=== PATIENT | female | born 1975 | race Caucasian/White ===

== ENCOUNTER → 2018-01-20 | Outpatient (CLI) | payer OTHER ==
--- NOTE | 2018-01-23 11:50 | XR ---
Right foot HISTORY: Pain 3 views of the right foot bone mineralization, joint spaces and alignment are maintained. There is a plantar calcaneal spur. IMPRESSION: No fracture or dislocation.
--- NOTE | 2018-01-23 11:52 | XR ---
Bilateral knees HISTORY: Knee pain 3 views of each knee submitted on a total of 6 images. Bone mineralization, joint spaces and alignment are maintained. No evident joint effusion. IMPRESSION: No significant abnormalities evident.
--- NOTE | 2018-01-23 13:50 | XR ---
Lumbosacral spine HISTORY: Low back pain, degenerative disc disease 5 views of the lumbosacral spine No comparisons Lumbar vertebral bodies show preserved height, alignment, and bone mineralization. No evident spondyl olysis or spondylolisthesis. There is loss of disc height at the lumbosacral junction associated vacu um phenomenon. Multiple level spondylosis is present. Sclerosis present posterior elements of the low er lumbar spine. IMPRESSION: Degenerative disc disease, consider lumbar MRI, possible facet arthropathy
== END | disposition home or self-care (01) ==
LOC: RADXRMAIN 16:00
PROVIDERS: ATTEND Family Medicine
DX: M51.37 Other intervertebral disc degeneration, lumbosacral region (principal); M79.671 Pain in right foot; M25.562 Pain in left knee; M25.561 Pain in right knee
CPT/HCPCS: 72110

== ENCOUNTER → 2018-03-13 | Outpatient (CLI) | payer OTHER ==
--- NOTE | 2018-03-13 21:15 | MR ---
EXAMINATION TYPE: MR lumbar spine wo con DATE OF EXAM: 03/13/2018 COMPARISON: Lumbosacral spine 01/20/2018 HISTORY: Back pain x15 years, xrays on PACS TECHNIQUE: Multiplanar, multisequence images of the lumbar spine were acquired. L1-L2: Normal disc appearance without desiccation. No herniation, protrusion or disc bulging. No ca nal stenosis is present. Foramina are patent bilaterally. L2-L3: Normal disc appearance without desiccation. No herniation, protrusion or disc bulging. No ca nal stenosis is present. Foramina are patent bilaterally. L3-L4: Normal disc appearance without desiccation. No herniation, protrusion or disc bulging. No ca nal stenosis is present. Foramina are patent bilaterally. L4-L5: There is facet arthropathy with hypertrophy ligamentum flavum is noted, no evident disc hernia tion or foraminal encroachment. L5-S1: Loss of disc height is present with associated vacuum phenomenon, endplate discogenic marrow s ignal changes, there is a small broad-based disc herniation possibly contacting the proximal S1 nerve roots, lateral extension of endplate disc complex encroaches mildly on the foramina. There is some f acet arthropathy change with hypertrophy ligamentum flavum. Lumbar segments are intact. No paraspinal masses are identified. Conus medullaris has a normal appe arance. Cystic focus at the lower pole of the right kidney measures approximately 11 mm. IMPRESSION: Degenerative disc disease, facet arthropathy as described. No significant central stenosis.
== END | disposition home or self-care (01) ==
LOC: RADMRIMAIN 19:25
PROVIDERS: ATTEND Family Medicine
DX: M51.36 Other intervertebral disc degeneration, lumbar region (principal); M46.96 Unspecified inflammatory spondylopathy, lumbar region
CPT/HCPCS: 72148

== ENCOUNTER → 2018-04-17 | Outpatient (CLI) | payer OTHER ==
--- NOTE | 2018-04-17 17:52 | US ---
EXAMINATION TYPE: US kidneys/renal and bladder DATE OF EXAM: 04/17/2018 COMPARISON: NONE CLINICAL HISTORY: N28.1 cyst of kidney. Renal cyst visualized on recent MRI EXAM MEASUREMENTS: Right Kidney: 10.0 x 4.0 x 4.1 cm Left Kidney: 12.2 x 4.4 x 5.6 cm Technical limitations due to patient's body habitus and large amount of overlying bowel content Right Kidney: no evidence of hydronephrosis, unable to visualize cystic area by ultrasound at this ti me within visualized portions Left Kidney: no evidence of hydronephrosis Bladder: wnl as visualized Bilateral Jets seen: no IMPRESSION: Urinary bladder is sonolucent. No evidence of renal mass or obstruction. No evidence of renal calculu s. There is a cyst on the lower pole right kidney on the previous MR scan that is not demonstrated by today's ultrasound exam.
== END | disposition home or self-care (01) ==
LOC: RADUSWWP 16:00
PROVIDERS: ATTEND Family Medicine
DX: N32.89 Other specified disorders of bladder (principal)
CPT/HCPCS: 76770

== ENCOUNTER → 2018-04-28 | Outpatient (CLI) | payer OTHER | END | disposition home or self-care (01) | LOC: CPPFTMAIN 13:29 | PROVIDERS: ATTEND Family Medicine | DX: R06.2 Wheezing (principal); Z72.0 Tobacco use | CPT/HCPCS: 94060; 94726; 94729 ==

== ENCOUNTER 2018-12-14 12:26 | Emergency (ER) | payer OTHER ==
[2018-12-14 12:33] VITALS: TEMP 98.2
[2018-12-14] MEDS ORDERED: KETOROLAC 30 MG/ML 1 ML VIAL IM STA (15:14)
[2018-12-14 15:16] LABS: Appearance,Urine Clear (Clear); Bacteria,Urine Rare /hpf; Bilirubin,Urine Negative (Negative); Blood,Urine Trace (Negative); Color,Urine Yellow; Glucose,Urine (UA) Negative (Negative); Ketones,Urine Negative (Negative); Leukocyte Esterase,Urine Negative (Negative); Mucus,Urine Rare /hpf; Nitrite,Urine Negative (Negative); PH, Urine 5.5 (5.0-8.0); Protein,Urine Negative (Negative); RBC,Urine 1 /hpf (0-5); Specific Gravity,Urine 1.019 (1.001-1.035); Squamous Epithelial Cell,Urine 4 /hpf (0-4); Urobilinogen,Urine <2.0 mg/dL (<2.0); WBC,Urine 1 /hpf (0-5)
[2018-12-14 15:42] VITALS: RESP 18
--- NOTE | 2018-12-14 15:49 | CT ---
EXAMINATION TYPE: CT lumbar spine wo con DATE OF EXAM: 12/14/2018 3:39 PM COMPARISON: None HISTORY: Fall today with injury to chin. Back pain CT DLP: [id number] mGycm Automated exposure control for dose reduction was used. TECHNIQUE: Unenhanced CT of the lumbar spine was performed. Bone and soft tissue window settings are submitted as well as coronal and sagittal reconstructions. FINDINGS: There are 5 lumbar type vertebral bodies. Pedicles and transverse processes appear unremark able. Vertebral body heights and alignment of the lumbar spine are maintained. Degenerative disc dise ase is seen at L1-L2 and L5-S1. Evaluation of the spinal canal is limited on CT. Cholelithiasis is present. Mild atherosclerosis of the abdominal aorta is seen. Appendix is air-fille d and within normal limits. Probable inferior pole small cortical renal cyst is present although inco mpletely characterized. L1-L2: Vacuum disc phenomenon is seen with sclerosis of the inferior endplate of L1 and superior endp late of L2 anteriorly. L2-L3: Normal disc space height. No disc herniation protrusion or central stenosis. No facet joint arthropathy. No evidence for foraminal encroachment. L3-L4: There is a broad-based disc bulge resulting in minimal bilateral neural foraminal narrowing. N o spinal canal stenosis. L4-L5: There is a broad-based disc bulge resulting in minimal bilateral neural foraminal narrowing. N o spinal canal stenosis. L5-S1: Broad-based disc bulge is seen with mild facet arthropathy resulting in mild bilateral neural foraminal narrowing. No spinal canal stenosis is evident on CT. Sacroiliac joint spaces are maintained. IMPRESSION: 1. No acute fracture or malalignment of the lumbar spine. 2. Mild multilevel degenerative disc disease of the lumbar spine. 3. Cholelithiasis. 4. Probable small right lower pole renal cyst. This could be further evaluated with ultrasound.
--- NOTE | 2018-12-14 17:05 | ED ---
General Adult HPI - General Chief complaint: Back Pain/Injury Stated complaint: fall, back injury Time Seen by Provider: 12/14/18 13:53 Source: patient, RN notes reviewed Mode of arrival: ambulatory Limitations: no limitations - History of Present Illness Initial comments: 43-year-old female presents to the emergency department for a chief complaint of back pain. Patient states she slipped on ice yesterday and fell on her lower back and right buttock. She states that she has been having low back pain radiating down the right leg since that time. Patient states she does chronically have right-sided sciatica but has not seen a pain specialist in quite some time. She denies any pain shooting down the left leg or any numbness on the left leg despite triage note. She does not have any weakness in the right leg. No numbness in the right leg. Patient saw primary care earlier today who recommended she come to the emergency department for pain management as she could not get into her depilatory painter. She states she is not currently seeing a specialist but does have a new appointment set up in 2 weeks. Patient denies bladder or bowel changes. Patient denies any saddle anesthesia. Patient has no other complaints at this time including shortness of breath, chest pain, abdominal pain, nausea or vomiting, headache, or visual changes. - Related Data Home Medications Medication Instructions Recorded Confirmed Acetaminophen [Tylenol] 12/14/18 Albuterol Inhaler [Ventolin Hfa 2 puff INHALATION RT-Q6H PRN 12/14/18 12/14/18 Inhaler] Baclofen [Lioresal] 10 mg PO DAILY 12/14/18 12/14/18 FLUoxetine HCL [PROzac] 40 mg PO DAILY 12/14/18 12/14/18 Levothyroxine Sodium [Synthroid] 150 mg PO DAILY 12/14/18 12/14/18 Pravastatin Sodium [Pravachol] 40 mg PO DAILY 12/14/18 12/14/18 busPIRone HCL [Buspar] 7.5 mg PO TID 12/14/18 12/14/18 carBAMazepine [TEGretol] 200 mg PO TID 12/14/18 12/14/18 traZODone HCL [TraZODone HCl] 50 mg PO HS 12/14/18 12/14/18 Previous Rx's Medication Instructions Recorded HYDROcodone/APAP 5-325MG [[place] 1 tab PO Q6HR PRN #10 tab 12/14/18 5-325] predniSONE 50 mg PO DAILY #5 tablet 12/14/18 Allergies Allergy/AdvReac Type Severity Reaction Status Date / Time cefaclor [From Ceclor] Allergy Anaphylaxis Verified 12/14/18 13:41 tree nut [Nut] Allergy Rash/Hives Verified 12/14/18 13:41 Review of Systems ROS Statement: Those systems with pertinent positive or pertinent negative responses have been documented in the HPI. ROS Other: All systems not noted in ROS Statement are negative. Past Medical History Past Medical History: Asthma, Cancer, Thyroid Disorder Additional Past Medical History / Comment(s): scoliosis, DGD, herniated disc, hydradinitis, cervical CA History of Any Multi-Drug Resistant Organisms: None Reported Additional Past Surgical History / Comment(s): facial plastic surgery Past Psychological History: Anxiety, Depression Smoking Status: Current every day smoker Past Alcohol Use History: None Reported Past Drug Use History: None Reported General Exam Limitations: no limitations General appearance: alert, in no apparent distress Head exam: Present: atraumatic, normocephalic, normal inspection Eye exam: Present: normal appearance, PERRL, EOMI. Absent: scleral icterus, conjunctival injection, periorbital swelling ENT exam: Present: normal exam, mucous membranes moist Neck exam: Present: normal inspection, full ROM. Absent: tenderness, meningismus, lymphadenopathy Respiratory exam: Present: normal lung sounds bilaterally. Absent: respiratory distress, wheezes, rales, rhonchi, stridor Cardiovascular Exam: Present: regular rate, normal rhythm, normal heart sounds. Absent: systolic murmur, diastolic murmur, rubs, gallop, clicks GI/Abdominal exam: Present: soft, normal bowel sounds. Absent: distended, tenderness, guarding, rebound, rigid Extremities exam: Present: normal capillary refill (Capillary refill less than 2 seconds in lower extremities bilaterally. DP pulse 2+ bilaterally) Back exam: Present: tenderness (Tenderness noted in the lumbar spine and sciatic notch of the right gluteal). Absent: full ROM (Patient has about 45 flexion, full extension of the lumbar spine.), CVA tenderness (R), CVA tenderness (L) Neurological exam: Present: alert, oriented X3, CN II-XII intact Psychiatric exam: Present: normal affect, normal mood Course Vital Signs 12/14/18 12/14/18 12/14/18 12:28 13:20 15:41 Temperature 98.2 F Pulse Rate 68 69 78 Respiratory 18 16 18 Rate Blood Pressure 123/85 113/58 95/59 O2 Sat by Pulse 96 99 99 Oximetry Medical Decision Making - Medical Decision Making 43-year-old female presents to the emergency department for a chief complaint of back pain with right sided paresthesia. Patient is shooting pain down the right leg. No numbness. Neurovascular intact. Patient did fall and has lumbar spine tenderness therefore CT was ordered. CT showed no acute fracture or malalignment in the lumbar spine. Patient given Toradol, stating pain is much better. Patient ambulatory and walking to the bathroom. Patient was given a small perception of [place] as she does not have any pain medications at home and does not have an appointment with pain specialist until 2 weeks from now. No red flag symptoms. Patient will follow up with primary care in 1-2 days. She will return here if she has any saddle anesthesia bladderbowel changes or any other worsening symptoms. - Lab Data Lab Results 12/14/18 12/14/18 Range/Units 14:50 14:50 Urine Color Yellow Urine Appearance Clear (Clear) Urine pH 5.5 (5.0-8.0) Ur Specific [place] 1.019 (1.001-1.035) Urine Protein Negative (Negative) Urine Glucose (UA) Negative (Negative) Urine Ketones Negative (Negative) Urine Blood Trace H (Negative) Urine Nitrite Negative (Negative) Urine Bilirubin Negative (Negative) Urine Urobilinogen <2.0 (<2.0) mg/dL Ur Leukocyte Esterase Negative (Negative) Urine RBC 1 (0-5) /hpf Urine WBC 1 (0-5) /hpf Ur Squamous Epith Cells 4 (0-4) /hpf Urine Bacteria Rare H (None) /hpf Urine Mucus Rare H (None) /hpf Urine HCG, Qual Not Detected (Not Detectd) Disposition Clinical Impression: Mechanical back pain Disposition: HOME SELF-CARE Condition: Good Instructions (If sedation given, give patient instructions): Acute Low Back Pain (ED), Chronic Back Pain (ED) Additional Instructions: Please follow up at your depilatory painter's office at your appointment. Follow up with primary care in 1-2 days. Please return here if you have any worsening symptoms. Prescriptions: HYDROcodone/APAP 5-325MG [[place] 5-325] 1 tab PO Q6HR PRN #10 tab PRN Reason: Pain predniSONE 50 mg PO DAILY #5 tablet Is patient prescribed a controlled substance at d/c from ED?: No Referrals: Bree Chaparro MD [Primary Care Provider] - 1-2 days Time of Disposition: 17:04
[2018-12-14 18:12] VITALS: BP 114/90; PULSE 64
== END 2018-12-14 17:30 | disposition home or self-care (01) ==
LOC: EC 12:26
DX: M54.5 Low back pain (principal); E07.9 Disorder of thyroid, unspecified; J45.909 Unspecified asthma, uncomplicated; F41.9 Anxiety disorder, unspecified; F32.9 Major depressive disorder, single episode, unspecified; F17.200 Nicotine dependence, unspecified, uncomplicated; Z79.890 Hormone replacement therapy; Z79.899 Other long term (current) drug therapy; Z88.1 Allergy status to other antibiotic agents; Z91.018 Allergy to other foods
CPT/HCPCS: 72131; 81001; 81025; 96372; 99284

== ENCOUNTER 2019-05-17 02:24 | Emergency (ER) | payer OTHER ==
[2019-05-17 02:30] VITALS: RESP 16
[2019-05-17] MEDS ORDERED: SULFAMETHOX-TMP 800-160MG 1 EACH TAB PO STA (03:20)
[2019-05-17] MEDS ORDERED: HYDROcodone/APAP 5-325MG 1 EACH TAB PO STA (03:21)
[2019-05-17] MEDS ORDERED: LIDOCAINE 1% INJ 10MG/ML (20 ML MDV) SQ ONE (03:22)
--- NOTE | 2019-05-17 03:24 | ED ---
Skin/Abscess/FB HPI - General Chief complaint: Skin/Abscess/Foreign Body Stated complaint: Abcess on groin Time Seen by Provider: 05/17/19 02:34 Source: patient Mode of arrival: ambulatory Limitations: no limitations - History of Present Illness complaint: abscess/boil Onset/Timin -: week(s) Tetanus Up to Date: yes Location: LLE Severity: moderate Quality: sharp Consistency: constant Improves with: other (Position) Worsens with: movement Context: other Associated symptoms: denies other symptoms Treatments Prior to Arrival: none - Related Data Home Medications Medication Instructions Recorded Confirmed Acetaminophen [Tylenol] 12/14/18 Albuterol Inhaler [Ventolin Hfa 2 puff INHALATION RT-Q6H PRN 12/14/18 12/14/18 Inhaler] Baclofen [Lioresal] 10 mg PO DAILY 12/14/18 12/14/18 FLUoxetine HCL [PROzac] 40 mg PO DAILY 12/14/18 12/14/18 Levothyroxine Sodium [Synthroid] 150 mg PO DAILY 12/14/18 12/14/18 Pravastatin Sodium [Pravachol] 40 mg PO DAILY 12/14/18 12/14/18 busPIRone HCL [Buspar] 7.5 mg PO TID 12/14/18 12/14/18 carBAMazepine [TEGretol] 200 mg PO TID 12/14/18 12/14/18 traZODone HCL [TraZODone HCl] 50 mg PO HS 12/14/18 12/14/18 Previous Rx's Medication Instructions Recorded HYDROcodone/APAP 5-325MG [[place] 1 tab PO Q6HR PRN #10 tab 12/14/18 5-325] predniSONE 50 mg PO DAILY #5 tablet 12/14/18 Hydrocodone/Acetaminophen [[place] 1 each PO Q6HR PRN #20 tab 05/17/19 5-325] Sulfamethox-Tmp 800-160Mg [Bactrim 1 each PO Q12HR #14 tab 05/17/19 Ds] Allergies Allergy/AdvReac Type Severity Reaction Status Date / Time cefaclor [From Ceclor] Allergy Anaphylaxis Verified 12/14/18 13:41 tree nut [Nut] Allergy Rash/Hives Verified 12/14/18 13:41 Review of Systems ROS Statement: Those systems with pertinent positive or pertinent negative responses have been documented in the HPI. ROS Other: All systems not noted in ROS Statement are negative. Constitutional: Denies: fever, chills Cardiovascular: Denies: chest pain, palpitations Skin: Reports: as per HPI, other (Abscess) Hematological/Lymphatic: Denies: easy bleeding Past Medical History Past Medical History: Asthma, Cancer, Thyroid Disorder Additional Past Medical History / Comment(s): scoliosis, DGD, herniated disc, hydradinitis, cervical CA History of Any Multi-Drug Resistant Organisms: None Reported Additional Past Surgical History / Comment(s): facial plastic surgery Past Psychological History: Anxiety, Depression Smoking Status: Current every day smoker Past Alcohol Use History: None Reported Past Drug Use History: None Reported General Exam Limitations: no limitations General appearance: alert, in no apparent distress Respiratory exam: Present: normal lung sounds bilaterally. Absent: respiratory distress, wheezes, rales, rhonchi, stridor Cardiovascular Exam: Present: regular rate, normal rhythm, normal heart sounds. Absent: systolic murmur, diastolic murmur, rubs, gallop GI/Abdominal exam: Present: soft. Absent: tenderness Skin exam: Present: warm, dry, intact, other (Patient has approximately 2.5 cm diameter area of fluctuance consistent with early abscess to left groin area.). Absent: rash Course Vital Signs 05/17/19 05/17/19 02:27 06:55 Temperature 97.9 F 98.0 F Pulse Rate 68 63 Respiratory 16 16 Rate Blood Pressure 140/86 136/95 O2 Sat by Pulse 97 97 Oximetry Procedures - Incision & Drainage Consent Obtained: verbal consent Site: lower extremity Anesthetic Used: lidocaine 1% I&D Cleaning Method: Chloroprep Scalpel Used: #11 Needle Aspiration Performed?: No Irrigation Performed?: Yes I&D Drainage Obtained: Pus, Blood Packing: Iodoform Culture Obtained?: No Patient Tolerated Procedure: well, no complications Disposition Clinical Impression: Abscess Disposition: HOME SELF-CARE Condition: Good Instructions (If sedation given, give patient instructions): Abscess Incision and Drainage (ED) Prescriptions: Sulfamethox-Tmp 800-160Mg [Bactrim Ds] 1 each PO Q12HR #14 tab Hydrocodone/Acetaminophen [[place] 5-325] 1 each PO Q6HR PRN #20 tab PRN Reason: Pain Is patient prescribed a controlled substance at d/c from ED?: No Referrals: Bree Chaparro MD [Primary Care Provider] - 1-2 days Zeinab Chahal MD [STAFF PHYSICIAN] - 1-2 days
[2019-05-17 06:56] VITALS: BP 136/95; PULSE 63; TEMP 98
== END 2019-05-17 06:55 | disposition home or self-care (01) ==
LOC: EC 02:24
DX: L02.214 Cutaneous abscess of groin (principal); J45.909 Unspecified asthma, uncomplicated; F41.9 Anxiety disorder, unspecified; F32.9 Major depressive disorder, single episode, unspecified; E07.9 Disorder of thyroid, unspecified; F17.200 Nicotine dependence, unspecified, uncomplicated; Z79.51 Long term (current) use of inhaled steroids; Z79.890 Hormone replacement therapy; Z79.899 Other long term (current) drug therapy; Z88.1 Allergy status to other antibiotic agents; Z91.018 Allergy to other foods; Z85.41 Personal history of malignant neoplasm of cervix uteri
CPT/HCPCS: 99282; 10060; J2001

== ENCOUNTER 2021-08-23 23:26 | Emergency (ER) | payer OTHER ==
[2021-08-24 01:38] VITALS: BP 132/84; PULSE 90; RESP 18; TEMP 97.2
--- NOTE | 2021-08-24 02:00 | XR ---
EXAMINATION TYPE: XR hand complete RT DATE OF EXAM: 08/24/2021 COMPARISON: NONE HISTORY: Fall. Pain TECHNIQUE: 3 views FINDINGS: Metacarpals are intact. I see no fracture nor dislocation. Joint spaces are normal. There a re no erosions. IMPRESSION: Negative right hand exam. No fracture seen.
--- NOTE | 2021-08-24 02:09 | ED ---
Wound/Laceration HPI - General Chief Complaint: Wound/Laceration Stated Complaint: Fall, lip lac/RT thumb injury Time Seen by Provider: 08/24/21 01:56 Source: patient, RN notes reviewed Mode of arrival: ambulatory Limitations: no limitations - History of Present Illness Initial Comments: Patient is a 46-year-old female that presents to emergency department complaining of right hand pain and a lower lip laceration. She notes that she tripped over her cat and hit her face on a railing. She noted this happened around 2:00 yesterday afternoon. Patient mostly complaining of hand pain. She notes pain is approximate 5 out of 10 with no relief. She denied any other issues or complaints. She denied chest pain shortness of breath headache nausea vomiting diarrhea constipation fever fatigue chills. - Related Data Home Medications Medication Instructions Recorded Confirmed Acetaminophen [Tylenol] 12/14/18 Albuterol Inhaler (Mhu) [Ventolin 2 puff INHALATION RT-Q6H PRN 12/14/18 12/14/18 Hfa Inhaler] Baclofen [Lioresal] 10 mg PO DAILY 12/14/18 12/14/18 FLUoxetine HCL [PROzac] 40 mg PO DAILY 12/14/18 12/14/18 Levothyroxine Sodium [Synthroid] 150 mg PO DAILY 12/14/18 12/14/18 Pravastatin Sodium [Pravachol] 40 mg PO DAILY 12/14/18 12/14/18 busPIRone HCL [Buspar] 7.5 mg PO TID 12/14/18 12/14/18 carBAMazepine [TEGretol] 200 mg PO TID 12/14/18 12/14/18 traZODone HCL [TraZODone HCl] 50 mg PO HS 12/14/18 12/14/18 Previous Rx's Medication Instructions Recorded HYDROcodone/APAP 5-325MG [[place] 1 tab PO Q6HR PRN #10 tab 12/14/18 5-325] predniSONE 50 mg PO DAILY #5 tablet 12/14/18 Hydrocodone/Acetaminophen [[place] 1 each PO Q6HR PRN #20 tab 05/17/19 5-325] Sulfamethox-Tmp 800-160Mg [Bactrim 1 each PO Q12HR #14 tab 05/17/19 Ds] Allergies Allergy/AdvReac Type Severity Reaction Status Date / Time cefaclor [From Ceclor] Allergy Anaphylaxis Verified 08/24/21 01:38 tree nut [Nut] Allergy Rash/Hives Verified 08/24/21 01:38 Review of Systems ROS Statement: Those systems with pertinent positive or pertinent negative responses have been documented in the HPI. ROS Other: All systems not noted in ROS Statement are negative. Past Medical History Past Medical History: Asthma, Cancer, Thyroid Disorder Additional Past Medical History / Comment(s): scoliosis, DGD, herniated disc, hydradinitis, cervical CA History of Any Multi-Drug Resistant Organisms: None Reported Additional Past Surgical History / Comment(s): facial plastic surgery Past Psychological History: Anxiety, Bipolar, Depression Smoking Status: Current every day smoker Past Alcohol Use History: None Reported Past Drug Use History: Cocaine, Marijuana, Opiates General Exam Limitations: no limitations General appearance: alert, in no apparent distress Head exam: Present: atraumatic, normocephalic, normal inspection Eye exam: Present: normal appearance, PERRL, EOMI. Absent: scleral icterus, conjunctival injection, periorbital swelling ENT exam: Present: normal exam, mucous membranes moist Neck exam: Present: normal inspection Respiratory exam: Present: normal lung sounds bilaterally. Absent: respiratory distress, wheezes, rales, rhonchi, stridor Cardiovascular Exam: Present: regular rate, normal rhythm, normal heart sounds. Absent: systolic murmur, diastolic murmur, rubs, gallop, clicks Extremities exam: Present: normal inspection, full ROM, normal capillary refill. Absent: tenderness, pedal edema, joint swelling, calf tenderness Neurological exam: Present: alert, oriented X3 Psychiatric exam: Present: normal affect, normal mood Skin exam: Present: warm, dry, intact, normal color. Absent: rash Expanded Type of lesion: Present: laceration (Bottom lip, nonbleeding.) Course Vital Signs 08/24/21 01:30 Temperature 97.2 F L Pulse Rate 90 Respiratory 18 Rate Blood Pressure 132/84 O2 Sat by Pulse 98 Oximetry Medical Decision Making - Medical Decision Making 46-year-old female complaining of pain and lip laceration. Patient was informed that due to the timeframe of her lip laceration where no longer able to close it. X-ray of the right hand ordered. X-ray negative for any acute fractures or dislocations. Patient be given referral to orthopedics. Case discussed with Dr. Galdamez, she can discharge home with follow-up to primary care. Disposition Clinical Impression: Laceration, Right hand pain Disposition: HOME SELF-CARE Condition: Stable Instructions (If sedation given, give patient instructions): Hand Sprain (ED) Additional Instructions: Please return to the Emergency Department if symptoms worsen or any other concerns. Follow-up with primary care 1-2 days per Follow-up with orthopedics as needed. Take Tylenol and/or Motrin as needed for pain. Is patient prescribed a controlled substance at d/c from ED?: No Referrals: Bree Chaparro MD [Primary Care Provider] - 1-2 days Ora Vergara DO [Doctor of Osteopathic Medicine] - 1-2 days Time of Disposition: 02:09
== END 2021-08-24 02:40 | disposition home or self-care (01) ==
LOC: EC 23:26
DX: S01.511A Laceration without foreign body of lip, initial encounter (principal); M79.641 Pain in right hand; J45.909 Unspecified asthma, uncomplicated; F41.9 Anxiety disorder, unspecified; F31.9 Bipolar disorder, unspecified; F17.200 Nicotine dependence, unspecified, uncomplicated; F12.90 Cannabis use, unspecified, uncomplicated; F14.90 Cocaine use, unspecified, uncomplicated; F11.90 Opioid use, unspecified, uncomplicated; Z79.52 Long term (current) use of systemic steroids; Z79.51 Long term (current) use of inhaled steroids; Z79.890 Hormone replacement therapy; Z79.899 Other long term (current) drug therapy; Z88.1 Allergy status to other antibiotic agents; W01.198A Fall on same level from slipping, tripping and stumbling with subsequent striking against other object, initial encounter
CPT/HCPCS: 99283